=== PATIENT | male | born 1980 | race Two or more races ===

== ENCOUNTER 2023-10-26 12:08 | Emergency (ER) | payer SELFPAY ==
[~2023-10-26] VITALS: Ht 167.6 cm; Wt 88.6 kg
[2023-10-26 12:35] VITALS: TEMP 98.4
[2023-10-26] MEDS ORDERED: ACETAMINOPHEN 500 MG TABLET PO ONE (12:45)
[2023-10-26] MEDS ORDERED: CYCL-448 PO (14:58)
[2023-10-26 15:04] VITALS: BP 128/73; PULSE 79; RESP 16
== END 2023-10-26 15:05 | disposition home or self-care (01) ==
LOC: EMS 12:11
DX: S13.4XXA Sprain of ligaments of cervical spine, initial encounter (principal); M54.50 Low back pain, unspecified; E78.00 Pure hypercholesterolemia, unspecified; V49.88XA Car occupant (driver) (passenger) injured in other specified transport accidents, initial encounter; Y93.89 Activity, other specified; Y92.89 Other specified places as the place of occurrence of the external cause; Y99.8 Other external cause status
CPT/HCPCS: 70450; 72125; 72128; 99283; 99284